=== PATIENT | female | born 1985 | race Hispanic/Latino ===

== ENCOUNTER → 2020-01-15 | Outpatient (CLI) | payer BC, SELFPAY ==
--- NOTE | 2020-01-16 20:28 | US ---
EXAM DESCRIPTION: Gall Bladder: ULTRASOUND. CLINICAL HISTORY: EPIGASTRIC PAIN COMPARISON: None. TECHNIQUE: Transabdominal scanning: Carter-scale and Doppler modes. FINDINGS: Gallbladder: normal size, shape, echogenicity; no intraluminal stones or sludge. No fluid around the gallbladder. No wall thickening. 2.6 mm. Non-tender with transducer pressure. Common bile duct: caliber 4.1 mm within normal limits. Liver: normal echogenicity; contour liver capsule smooth where seen. No fluid around the liver. Intrahepatic biliary ducts normal caliber. Doppler hepatopedal flow portal vein.. Normal caliber portal vein: 7 mm. Long axis right lobe 12.4 cm Pancreas: normal size Normal echogenicity. Duct not seen. Aorta: 1.3 cm normal caliber. Right kidney: long axis is 9.6; volume 95.4 mL. Normal cortical thickness. Normal cortical echogenicity. No echogenic stones or hydronephrosis or perinephric fluid.. IMPRESSION: 1. Gallbladder, common bile duct, liver, pancreas, and right kidney are unremarkable. No ascites 2. Normal caliber of the IVC and proximal aorta. Electronically signed by: Brendon Luna MD 01/16/2020 8:27 PM FIELD SUPPORT TECHNICIAN
== END ==
LOC: US 09:57
PROVIDERS: ATTEND Emergency Medicine
DX: R10.13 Epigastric pain (principal)

== ENCOUNTER → 2020-02-11 | Outpatient (CLI) | payer BC | LOC: YCFC.O 16:32 | PROVIDERS: ATTEND Nurse Practitioner | DX: Z20.828 Contact with and (suspected) exposure to other viral communicable diseases (principal) ==